=== PATIENT | female | born 1990 | race Caucasian/White ===

== ENCOUNTER 2016-06-27 02:03 | Emergency (ER) | payer OTHER ==
[~2016-06-27] VITALS: Ht 175.3 cm; Wt 65.0 kg
[2016-06-27 02:23] VITALS: Ht 175.3 cm; Wt 65.0 kg
[2016-06-27] MEDS ORDERED: CPRHC10OT BOTH EARS (03:20)
[2016-06-27] MEDS ORDERED: HYDR-906 PO (03:21)
[2016-06-27] MEDS ORDERED: KETOROLAC 30 MG INJ IM STA (03:21)
[2016-06-27] MEDS ORDERED: AMO500 PO (03:21)
[2016-06-27] MEDS ORDERED: IBUP-1542 PO (03:21)
--- NOTE | 2016-06-27 03:26 | ERD ---
ER Documentation Chief Complaint Date/Time DATE: 06/27/16 TIME: 03:22 Chief Complaint Bilateral ear pain. ruptured ear drum seen in [facility] Patient is a 26-year-old female who presents with bilateral ear pain 3 days. Patient states she was seen at [facility] yesterday diagnosed with acute otitis media and serous otitis media of bilateral ears. Patient was given an "unknown antibiotic shot, something for inflammation" and one Vicodin pill. Patient was advised to continue Azithromycin x 3 days. Patient has taken 1 dose thus far. She states that she woke up one hour ago with severe pain. Patient states her current pain level is a 10 out of 10. Patient reports yellow discharge from bilateral ears. Patient denies any fever, nausea and vomiting. She does report some chills. Patient denies any cough, sore throat, abdominal pain. ROS All systems reviewed and are negative except as per history of present illness. Medications Home Meds Active Scripts Amoxicillin* (Amoxicillin*) 500 Mg Cap, 500 MG PO BID for 7 Days, CAP Prov:PAMELA LANDIS PA-C 06/27/16 Ibuprofen* (Motrin*) 600 Mg Tab, 600 MG PO Q6, #30 TAB Prov:PAMELA LANDIS PA-C 06/27/16 Hydrocodone/Acetaminophen ([place] 5-325 Tablet) 1 Each Tablet, 1 TAB PO Q6H Y for PAIN, #10 TAB Prov:PAMELA LANDIS PA-C 06/27/16 Ciprofloxacin/Hydrocortisone* (Cipro* HC Otic) 10 Ml Drops, 3 DROP BOTH EARS TID , #1 BOTTLE Prov:PAMELA LANDIS PA-C 06/27/16 Allergies Allergies: Coded Allergies: No Known Allergy (Unverified , 06/27/16) PMhx/Soc Medical and Surgical Hx: pt denies Medical Hx, pt denies Surgical Hx Hx Alcohol Use: No Hx Substance Use: No Hx Tobacco Use: No Smoking Status: Never smoker FmHx Family History: No diabetes Physical Exam Vitals Vital Signs Date Time Temp Pulse Resp B/P Pulse Ox O2 Delivery O2 Flow Rate FiO2 06/27/16 04:49 97 16 117/65 97 Room Air 06/27/16 02:23 98.9 103 18 118/73 97 Physical Exam GENERAL: Well-developed, well-nourished female. Appears in no acute distress. HEAD: Normocephalic, atraumatic. No deformities or ecchymosis. EYE: Pupils equal, round, and reactive to light. EOMs intact. No conjunctival erythema. No eye discharge. ENT: External ear without any masses or tenderness. Bilateral auditory canals swollen with yellow discharge noted. Difficulty visualizing bilateral tympanic membranes secondary to swelling of auditory canal. Unable to determine if tympanic membrane perforated. Nasal mucosa pink with no discharge. Oropharynx is pink without any tonsillar erythema or exudates. No uvula deviation. No kissing tonsils. Nontender to palpation of bilateral mastoid processes. NECK: Supple. No meningismus. Normal ROM of the neck. LUNG: Clear to auscultation bilaterally. No rhonchi, wheezing, rales or coarse breath sounds. HEART: Regular rate and rhythm. No murmurs, rubs or gallops. BACK: No midline tenderness. EXTREMITES: Equal pulses bilaterally. No peripheral clubbing, cyanosis or edema. No unilateral leg swelling. NEUROLOGIC: Alert and oriented to person, place and time. Moving all four extremities. 5/5 strength in all extremities. Normal speech. Steady gait. SKIN: Normal color. Warm and dry. No rashes or lesions. Results 24 hrs Current Medications Medications (Trade) Dose Ordered Sig/Cate Route PRN Reason Start Time Stop Time Status Last Admin Dose Admin Ketorolac Tromethamine (Toradol) 30 mg ONCE STAT IM 06/27/16 03:21 06/27/16 03:23 DC 06/27/16 03:42 Acetaminophen/ Hydrocodone Bitart ([place] (5/325)) 1 tab ONCE ONCE PO 06/27/16 04:30 06/27/16 04:31 DC 06/27/16 04:35 Procedures/MDM MEDICAL DECISION MAKING: This is a 26-year-old female who presents with bilateral ear pain. Patient was diagnosed with acute otitis media and serous otitis media yesterday when she was seen at an outside hospital.. Vital signs were reviewed. Patient was afebrile. Patient was not hypoxic. ENT exam revealed swelling of bilateral auditory canal swelling with yellow discharge. Patient was given Toradol IM and [place] here in the ED due to having 10/10 pain. Patient reported improvement in pain prior to discharge.Given these findings, the patient;s presentation is most consistent with bilateral otitis media and otitis externa. I have a much lower clinical suspicion for strep pharyngitis, sinusitis, mastoiditis, otic barotrauma, TMJ dysfunction, pneumonia. Unable to rule out tympanic membrane rupture given difficulty with visualizing tympanic membranes secondary to auditory canal swelling. PRESCRIPTIONS: Cipro ear drop. Amoxicillin. Patient advised to stop Azithromycin and start Amoxicillin. Ibuprofen, [place] DISCHARGE: At this time, patient is stable for discharge and outpatient management. I have instructed the patient to follow-up with his/her primary care physician in 1-2 days. I have discussed with the patient the possibility of needing to see a specialist for further workup and diagnostic studies if the pain persists. I have instructed the patient to promptly return to the ER at any time for any new or worsening symptoms including increased pain, fever, swelling, discharge or hearing loss. The patient and/or family expressed understanding of and agreement with this plan. All questions were answered. Home care instructions were provided. Departure Diagnosis: Primary Impression: Otitis externa Otitis externa type: unspecified type Laterality: bilateral Chronicity: unspecified Qualified Code: H60.93 - Otitis externa of both ears, unspecified chronicity, unspecified type Additional Impression: Acute otitis media Otitis media type: unspecified Laterality: unspecified laterality Qualified Code: H66.90 - Acute otitis media, unspecified laterality, unspecified otitis media type Condition: Stable Patient Instructions: Otitis Media, Abx Tx (Adult) Referrals: [facility] YOU HAVE RECEIVED A MEDICAL SCREENING EXAM AND THE RESULTS INDICATE THAT YOU DO NOT HAVE A CONDITION THAT REQUIRES URGENT TREATMENT IN THE EMERGENCY DEPARTMENT. FURTHER EVALUATION AND TREATMENT OF YOUR CONDITION CAN WAIT UNTIL YOU ARE SEEN IN YOUR DOCTORS OFFICE WITHIN THE NEXT 1-2 DAYS. IT IS YOUR RESPONSIBILITY TO MAKE AN APPOINTMENT FOR [facility]- CARE. IF YOU HAVE A PRIMARY DOCTOR --you should call your primary doctor and schedule an appointment IF YOU DO NOT HAVE A PRIMARY DOCTOR YOU CAN CALL OUR PHYSICIAN REFERRAL HOTLINE AT IF YOU CAN NOT AFFORD TO SEE A PHYSICIAN YOU CAN CHOSE FROM THE FOLLOWING [facility] [address] [place]. [facility] [address] [facility]. [facility] [address] [facility] [address] [facility] [address] [facility] [facility] [address] [facility]. [facility] YOU HAVE RECEIVED A MEDICAL SCREENING EXAM AND THE RESULTS INDICATE THAT YOU DO NOT HAVE A CONDITION THAT REQUIRES URGENT TREATMENT IN THE EMERGENCY DEPARTMENT. FURTHER EVALUATION AND TREATMENT OF YOUR CONDITION CAN WAIT UNTIL YOU ARE SEEN IN YOUR DOCTORS OFFICE WITHIN THE NEXT 1-2 DAYS. IT IS YOUR RESPONSIBILITY TO MAKE AN APPOINTMENT FOR FOLOW-UP CARE. IF YOU HAVE A PRIMARY DOCTOR --you should call your primary doctor and schedule and appointment IF YOU DO NOT HAVE A PRIMARY DOCTOR YOU CAN CALL OUR PHYSICIAN REFERRAL HOTLINE AT . IF YOU CAN NOT AFFORD TO SEE A PHYSICIAN YOU CAN CHOSE FROM THE FOLLOWING [facility]IONS: [facility] [address] [place] [address] [facility] [address] [place] [address] [facility] + [facility] [address] [place] [address] Additional Instructions: Call your primary care doctor TOMORROW for an appointment during the next 1-2 days.See the doctor sooner or return here if your condition worsens before your appointment time. PAMELA LANDIS PA-C Jun 27, 2016 03:26
[2016-06-27] MEDS ORDERED: HYDROCODONE/APAP (5/325) TAB PO ONE (04:30)
[2016-06-27 04:49] VITALS: BP 117/65; PULSE 97; RESP 16
== END 2016-06-27 04:53 | disposition home or self-care (01) ==
LOC: FTE 02:03
DX: H60.93 Unspecified otitis externa, bilateral (principal); H66.90 Otitis media, unspecified, unspecified ear
CPT/HCPCS: 96372; 99284; J1885

== ENCOUNTER 2016-11-17 13:13 | Emergency (ER) | payer OTHER ==
[~2016-11-17] VITALS: Ht 175.3 cm; Wt 61.5 kg
[~2016-11-17 13:13] MED LIST: AMO500 PO; CPRHC10OT BOTH EARS; HYDR-906 PO; IBUP-1542 PO
[2016-11-17 13:14] VITALS: Ht 175.3 cm; Wt 61.5 kg
--- NOTE | 2016-11-17 13:42 | ERA ---
ER Documentation Chief Complaint Date/Time DATE: 11/17/16 TIME: 13:42 Chief Complaint Pelvic pain HPI The patient is a 26-year-old female, presenting to the ER because of chronic pelvic pain, was for the last couple days. She denies fever, chills, neck pain , chest pain, dyspnea, abdominal pain, vomiting, dysuria, diarrhea, vaginal discharge. He complains of frequent urination and weight loss. She does not smoke nor drink Past medical history: Acnes Past surgical history: None ROS All systems reviewed and are negative except as per history of present illness. Medications Home Meds Active Scripts Ibuprofen* (Motrin*) 600 Mg Tab, 600 MG PO Q6H Y for PAIN AND OR ELEVATED TEMP, #30 TAB Prov:ADAM GIL MD 11/17/16 Amoxicillin* (Amoxicillin*) 500 Mg Cap, 500 MG PO BID for 7 Days, CAP Prov:PAMELA LANDIS PA-C 06/27/16 Ibuprofen* (Motrin*) 600 Mg Tab, 600 MG PO Q6, #30 TAB Prov:PAMELA LANDIS PA-C 06/27/16 Hydrocodone/Acetaminophen ([place] 5-325 Tablet) 1 Each Tablet, 1 TAB PO Q6H Y for PAIN, #10 TAB Prov:PAMELA LANDIS PA-C 06/27/16 Ciprofloxacin/Hydrocortisone* (Cipro* HC Otic) 10 Ml Drops, 3 DROP BOTH EARS TID , #1 BOTTLE Prov:PAMELA LANDIS PA-C 06/27/16 Allergies Allergies: Coded Allergies: No Known Allergy (Unverified , 06/27/16) PMhx/Soc Hx Alcohol Use: No Hx Substance Use: No Hx Tobacco Use: No Physical Exam Vitals Vital Signs Date Time Temp Pulse Resp B/P Pulse Ox O2 Delivery O2 Flow Rate FiO2 11/17/16 16:10 98.0 84 18 122/80 100 11/17/16 13:14 98.5 81 18 126/83 100 Physical Exam Const: No acute distress. Head: Atraumatic. Eyes: Normal Conjunctiva. ENT: Normal External Ears, Nose and Mouth. Neck: Full range of motion. No meningismus. Resp: Clear to auscultation bilaterally. Cardio: Regular rate and rhythm. Abd: Soft, non distended, normal bowel sounds, non tender. Minimal suprapubic tenderness, no rigidity, rebound, CVA tenderness Skin: No petechiae or rashes. Back: No midline or flank tenderness. Ext: No cyanosis, or edema. Neur: Awake and alert. No focal deficit Psych: Normal Mood and Affect. Result Diagram: 11/17/16 1410 11/17/16 1410 Results 24 hrs Laboratory Tests Test 11/17/16 14:07 11/17/16 14:10 Bedside Urine pH (LAB) 6.5 Bedside Urine Protein (LAB) Negative Bedside Urine Glucose (UA) Negative Bedside Urine Ketones (LAB) Trace Bedside Urine Blood Negative Bedside Urine Nitrite (LAB) Negative Bedside Urine Leukocyte Esterase (L Negative White Blood Count 7.710^3/ul Red Blood Count 4.8110^6/ul Hemoglobin 14.4g/dl Hematocrit 42.9% Mean Corpuscular Volume 89.2fl Mean Corpuscular Hemoglobin 29.9pg Mean Corpuscular Hemoglobin Concent 33.6g/dl Red Cell Distribution Width 11.1% Platelet Count 43271^3/UL Mean Platelet Volume 10.9fl Neutrophils % 54.8% Lymphocytes % 37.6% Monocytes % 6.2% Eosinophils % 0.6% Basophils % 0.5% Nucleated Red Blood Cells % 0.0/100WBC Neutrophils # 4.210^3/ul Lymphocytes # 2.910^3/ul Monocytes # 0.510^3/ul Eosinophils # 0.110^3/ul Basophils # 0.010^3/ul Nucleated Red Blood Cells # 0.010^3/ul Sodium Level 138mmol/L Potassium Level 4.1mmol/L Chloride Level 101mmol/L Carbon Dioxide Level 27mmol/L Anion Gap 14 Blood Urea Nitrogen 7mg/dl Creatinine 0.69mg/dl Glucose Level 89mg/dl Calcium Level 9.9mg/dl Procedures/[place] [address] Radiology Main Line: [phone] DIAGNOSTIC IMAGING REPORT Patient: SKYE BETANCOURT : 1990 Age: 26 Sex: F MR #: [id number] DOS: 11/17/16 1357 Ordering MD: ADAM GIL MD Location: FTE Room/Bed: PROCEDURE: US Pelvis. CLINICAL INDICATION: pelvic pain TECHNIQUE: Multiple sonographic images of the pelvis were obtained utilizing a transabdominal and endovaginal technique. The images were reviewed on a PACS workstation. COMPARISON: None. FINDINGS: The uterus is normal in size with a normal appearance of the myometrium. The uterus measures 5.9 x 2.9 x 4.4 cm. The endometrial stripe is homogeneous in appearance and has the thickness of 3.5 mm. The ovaries are normal in size and echogenicity. Normal Doppler flow is identified in both ovaries. The right ovary measures 3.0 x 1.4 x 2.6 cm. The left ovary measures 2.6 x 1.8 x 2.1 cm. There are normal follicles in the ovaries. No free fluid is present within the pelvis. RPTAT: AA IMPRESSION: Unremarkable pelvic ultrasound. .Jose Song MD, Date Time Electronically viewed and signed by .Jose Song MD, MD on 11/17/2016 14: 46 .S/ CC: ADAM GIL MD MEDICAL MAKING DECISION: The patient is a 36-year-old female, presenting with chronic pelvic pain of unclear etiology. She is stable for outpatient follow-up The differential diagnoses considered include but are not limited to PID, ovarian cyst, endometriosis, fibroids, appendicitis. Departure Diagnosis: Primary Impression: Pelvic pain Condition: Good Comments She was discharged with Motrin I discussed the findings with the patient. I advised the patient to follow-up with order picker/assembler in about 1-2 days, sooner if needed and return if any concern. ADAM GIL MD Nov 17, 2016 13:42
[2016-11-17 14:02] LABS: URINE BLOOD (Dip) POC Negative (NEGATIVE)
[2016-11-17 14:16] LABS: ADD SCAN DIFF NO
[2016-11-17 14:29] LABS: BASOPHILS % 0.5 % (0.0-2.0); EOSINOPHILS # 0.1 10^3/ul (0.0-0.5); EOSINOPHILS % 0.6 % (0.0-7.0); HEMATOCRIT 42.9 % (37.0-47.0); HEMOGLOBIN 14.4 g/dl (12.0-16.0); LYMPHOCYTES # 2.9 10^3/ul (0.8-2.9); LYMPHOCYTES % 37.6 % (15.0-51.0); MEAN CORPUSCULAR HEMOGLOBIN 29.9 pg (29.0-33.0); MEAN CORPUSCULAR HGB CONC 33.6 g/dl (32.0-37.0); MEAN CORPUSCULAR VOLUME 89.2 fl (82.0-101.0); MEAN PLATELET VOLUME 10.9 fl (7.4-10.4); MONOCYTE # 0.5 10^3/ul (0.3-0.9); MONOCYTES % 6.2 % (0.0-11.0); NEUTROPHIL # 4.2 10^3/ul (1.6-7.5); NEUTROPHILS % 54.8 % (39.0-77.0); PLATELET COUNT 199 10^3/UL (140-415); RED BLOOD COUNT 4.81 10^6/ul (4.20-5.40); RED CELL DISTRIBUTION WIDTH 11.1 % (11.5-14.5); WHITE BLOOD COUNT 7.7 10^3/ul (4.8-10.8)
[2016-11-17 14:38] LABS: CALCIUM 9.9 mg/dl (8.4-10.2); CREATININE 0.69 mg/dl (0.44-1.00); POTASSIUM 4.1 mmol/L (3.5-5.1)
--- NOTE | 2016-11-17 14:47 | RADRPT ---
PROCEDURE: US Pelvis. CLINICAL INDICATION: pelvic pain TECHNIQUE: Multiple sonographic images of the pelvis were obtained utilizing a transabdominal and endovaginal technique. The images were reviewed on a PACS workstation. COMPARISON: None. FINDINGS: The uterus is normal in size with a normal appearance of the myometrium. The uterus measures 5.9 x 2.9 x 4.4 cm. The endometrial stripe is homogeneous in appearance and has the thickness of 3.5 mm. The ovaries are normal in size and echogenicity. Normal Doppler flow is identified in both ovaries. The right ovary measures 3.0 x 1.4 x 2.6 cm. The left ovary measures 2.6 x 1.8 x 2.1 cm. There are normal follicles in the ovaries. No free fluid is present within the pelvis. RPTAT: AA IMPRESSION: Unremarkable pelvic ultrasound. .Jose Song MD, Date Time Electronically viewed and signed by .Jose Song MD, on 11/17/2016 14:46 .S/
[2016-11-17] MEDS ORDERED: IBUP-1542 PO (15:43)
[2016-11-17 16:10] VITALS: BP 122/80; PULSE 84; RESP 18; TEMP 98
== END 2016-11-17 16:11 | disposition home or self-care (01) ==
LOC: FTE 13:13
DX: R10.2 Pelvic and perineal pain (principal)
CPT/HCPCS: 36415; 76830; 76856; 80048; 81003; 85025

== ENCOUNTER 2016-12-28 15:29 | Emergency (ER) | payer BC, OTHER ==
[~2016-12-28] VITALS: Ht 157.5 cm; Wt 67.0 kg
[~2016-12-28 15:29] MED LIST changes: -AMO500 PO; +AMOX500C2 PO
[2016-12-28 15:34] VITALS: Ht 157.5 cm; Wt 67.0 kg
[2016-12-28 18:05] LABS: ADD UMIC NO; UR ASCORBIC ACID 20 mg/dL (NEGATIVE); UR BILIRUBIN (Dip) NEGATIVE (NEGATIVE); UR BLOOD (Dip) NEGATIVE (NEGATIVE); UR CLARITY CLEAR (CLEAR); UR COLOR STRAW (YELLOW); UR GLUCOSE (Dip) NEGATIVE (NEGATIVE); UR KETONES (Dip) NEGATIVE (NEGATIVE); UR LEUKOCYTE ESTERASE (Dip) NEGATIVE Leu/ul (NEGATIVE); UR NITRITE (Dip) NEGATIVE (NEGATIVE); UR SPECIFIC GRAVITY (Dip) 1.013 (1.003-1.030); UR TOTAL PROTEIN (Dip) NEGATIVE (NEGATIVE); UR UROBILINOGEN (Dip) NEGATIVE (NEGATIVE)
--- NOTE | 2016-12-28 18:07 | RADRPT ---
PROCEDURE: ULTRASOUND EVALUATION OF THE FEMALE PELVIS: CLINICAL INDICATION: 26 years of age, female, pelvic pain . COMPARISON: Pelvic ultrasound November 17, 2016 TECHNIQUE: Real-time sonographic images of the pelvis were obtained transabdominally and transvagina lly utilizing ramirez scale, color, and Doppler imaging. FINDINGS: LMP: November 09, 2016 Uterus: Appearance: Normal. Position: Anteverted Size: 6.5 x 3.2 x 3.6 cm. (Volume 39 mL) Endometrial stripe: 0.3 cm Right ovary and adnexa: Size: 3.7 x 1.9 x 2.5 cm. (Volume 9.1 mL) Appearance: Normal morphology. No masses. Arterial flow present. Left ovary and adnexa: Size: 3.5 x 1.8 x 2.3 cm. (Volume 7.2 mL) Appearance: Normal morphology. No masses. Arterial flow present. Free fluid: None IMPRESSION: Normal ultrasound evaluation of the female pelvis. Cause for pelvic pain is not evident. RPTAT: HCTS Physician Debra Date Time Electronically viewed and signed by Physician Debra on 12/28/2016 18:06 /
[2016-12-28] MEDS ORDERED: METR500T PO (19:35)
[2016-12-28] MEDS ORDERED: CLOT30CR24 TOP (19:36)
[2016-12-28 20:31] VITALS: BP 117/65; PULSE 73; RESP 16
--- NOTE | 2017-01-04 13:00 | ERD ---
ER Documentation Chief Complaint Date/Time DATE: 01/04/17 TIME: 12:59 Chief Complaint pelvic pain HPI 26 year old female patient with no significant past medical history presents to the ED complaining of pelvic pain intermittently for 2 years. Patient also reports that she has a rash surrounding the genitalia. Reports that she is not . States that the rash is itchy. Denies any vaginal bleeding, dysuria, urgency, frequency, abdominal pain, nausea, vomiting, diarrhea, constipation, chest pain, shortness of breath. States that she is unsure of the exact date of her last menses. States that she has not been sexually active recently. Reports that she was tested for STDs and HIV and it was negative. ROS All systems reviewed and are negative except as per history of present illness. Medications Home Meds Active Scripts Clotrimazole* (Clotrimazole* AF) 1% - 30 Gm Cream.gm., 1 APPLIC TOP BID for 28 Days, TUB or until 1 week after symptoms resolve Prov:DEJAN LIMON PA-C 12/28/16 Metronidazole* (Flagyl*) 500 Mg Tablet, 500 MG PO BID for 7 Days, TAB Prov:DEJAN LIMON PA-C 12/28/16 Ibuprofen* (Motrin*) 600 Mg Tab, 600 MG PO Q6H Y for PAIN AND OR ELEVATED TEMP, #30 TAB Prov:ADAM GIL MD 11/17/16 Amoxicillin* (Amoxicillin*) 500 Mg Cap, 500 MG PO BID for 7 Days, CAP Prov:PAMELA LANDIS PA-C 06/27/16 Ibuprofen* (Motrin*) 600 Mg Tab, 600 MG PO Q6, #30 TAB Prov:PAMELA LANDIS PA-C 06/27/16 Hydrocodone/Acetaminophen ([place] 5-325 Tablet) 1 Each Tablet, 1 TAB PO Q6H Y for PAIN, #10 TAB Prov:PAMELA LANDIS PA-C 06/27/16 Ciprofloxacin/Hydrocortisone* (Cipro* HC Otic) 10 Ml Drops, 3 DROP BOTH EARS TID , #1 BOTTLE Prov:PAMELA LANDIS PA-C 06/27/16 Allergies Allergies: Coded Allergies: No Known Allergy (Unverified , 06/27/16) PMhx/Soc Medical and Surgical Hx: pt denies Medical Hx, pt denies Surgical Hx Hx Alcohol Use: No Hx Substance Use: No Hx Tobacco Use: No Physical Exam Vitals Temp 98.2 Pulse 90 Resp 18 SBP 123 DBP 83 O2 Sat 99 Physical Exam Const: [id number], well-nourished. In no acute distress. Head: Atraumatic, normocephalic Eyes: Normal Conjunctiva without injection. No purulent discharge. ENT: Normal external ear, nose. Moist oropharynx without tonsillar exudates. Non -erythematous pharynx. Uvula midline. No drooling. No trismus. Neck: No cervical midline tenderness. Full range of motion. No meningismus. No cervical lymphadenopathy. No JVD. Resp: Clear to auscultation bilaterally. No wheezing, rhonchi, rales, or crackles. No accessory muscle use. No retractions. Cardio: Regular rate and rhythm. No murmurs, rubs or gallops. Abd: Soft, nontender, non distended. Normal bowel sounds. No palpable masses. No rebound tenderness. No guarding. Negative McBurney's point. Negative psoas sign. Negative obturator sign. : See exam in MDM. Skin: No petechiae, purpura. Erythematous base rash with central clearing surrounding the genitalia region. Back: No midline tenderness. No CVA tenderness. Ext: No cyanosis, or edema. Neur: Awake and alert. Normal gait. Normal coordination. Psych: Normal Mood and Affect Results 24 hrs Laboratory Tests Test 12/28/16 17:17 Urine Color STRAW Urine Clarity CLEAR Urine pH 7.0 Urine Specific Henry 1.013 Urine Ketones NEGATIVEmg/dL Urine Nitrite NEGATIVEmg/dL Urine Bilirubin NEGATIVEmg/dL Urine Urobilinogen NEGATIVEmg/dL Urine Leukocyte Esterase NEGATIVELeu/ul Urine Hemoglobin NEGATIVEmg/dL Urine Glucose NEGATIVEmg/dL Urine Total Protein NEGATIVEmg/dl Procedures/[facility] This is a 26-year-old female patient who presents to the ED complaining of chronic pelvic pain that has been occurring intermittently for the past 2 years as well as a rash that she is noted in the external part of her genitalia. Patient is afebrile nontoxic appearing. Patient has normal vital signs. Pelvic Exam: Clinical Informatics Educator present Abdomen: [Nontender] External Genitalia: [Normal Skin] Speculum: [Normal vaginal mucosa, brownish cervical discharge] Bimanual: [No adnexal masses or tenderness, No CMT] PROCEDURE: ULTRASOUND EVALUATION OF THE FEMALE PELVIS: CLINICAL INDICATION: 26 years of age, female, pelvic pain . COMPARISON: Pelvic ultrasound November 17, 2016 TECHNIQUE: Real-time sonographic images of the pelvis were obtained transabdominally and transvaginally utilizing ramirez scale, color, and Doppler imaging. FINDINGS: LMP: November 09, 2016 Uterus: Appearance: Normal. Position: Anteverted Size: 6.5 x 3.2 x 3.6 cm. (Volume 39 mL) Endometrial stripe: 0.3 cm Right ovary and adnexa: Size: 3.7 x 1.9 x 2.5 cm. (Volume 9.1 mL) Appearance: Normal morphology. No masses. Arterial flow present. Left ovary and adnexa: Size: 3.5 x 1.8 x 2.3 cm. (Volume 7.2 mL) Appearance: Normal morphology. No masses. Arterial flow present. Free fluid: None IMPRESSION: Normal ultrasound evaluation of the female pelvis. Cause for pelvic pain is not evident. Urine: No elevation in nitrites, leukocyte esterase, hematuria. No evidence of UTI. Wet mount was positive for clue cells. Patient will be treated for bacterial vaginosis. Low suspicion for symptomatic anemia, ectopic , sepsis, PID, appendicitis, ovarian torsion, tubo- ovarian abscess, surgical abdomen, or other emergent conditions. Rash surrounding the genitalia is consistent with tinea infection. Low suspicion for scabies, SJS/TEN, erythema multiforme, sepsis, cellulitis, necrotizing fascitis , gangrene, meningococcemia or other emergent conditions. Discharge medications: Clotrimazole, Metronidazole Patient to follow up with INSTRUMENT ASSEMBLY SUPERVISOR in 2 days for further evaluation and treatment. Patient is to return sooner to the ED for any worsening symptoms. Patient's questions were answered. Patient understood and agreed with discharge plan. Departure Diagnosis: Primary Impression: Pelvic pain Condition: Stable Patient Instructions: Vaginal Infection: Bacterial Vaginosis, Why Have a Pap Test?, Pelvic Pain, Unknown Cause, Tinea Cruris, General Referrals: ANA LEUNG MD (PCP) [facility] YOU HAVE RECEIVED A MEDICAL SCREENING EXAM AND THE RESULTS INDICATE THAT YOU DO NOT HAVE A CONDITION THAT REQUIRES URGENT TREATMENT IN THE EMERGENCY DEPARTMENT. FURTHER EVALUATION AND TREATMENT OF YOUR CONDITION CAN WAIT UNTIL YOU ARE SEEN IN YOUR DOCTORS OFFICE WITHIN THE NEXT 1-2 DAYS. IT IS YOUR RESPONSIBILITY TO MAKE AN APPOINTMENT FOR FOLOW-UP CARE. IF YOU HAVE A PRIMARY DOCTOR --you should call your primary doctor and schedule an appointment IF YOU DO NOT HAVE A PRIMARY DOCTOR YOU CAN CALL OUR PHYSICIAN REFERRAL HOTLINE AT IF YOU CAN NOT AFFORD TO SEE A PHYSICIAN YOU CAN CHOSE FROM THE FOLLOWING [facility] [address] [facility] [address] [facility]. [facility] [address] [facility] [address] [facility]. [facility] [address] [facility]. [facility] [address] [facility]. [facility] YOU HAVE RECEIVED A MEDICAL SCREENING EXAM AND THE RESULTS INDICATE THAT YOU DO NOT HAVE A CONDITION THAT REQUIRES URGENT TREATMENT IN THE EMERGENCY DEPARTMENT. FURTHER EVALUATION AND TREATMENT OF YOUR CONDITION CAN WAIT UNTIL YOU ARE SEEN IN YOUR DOCTORS OFFICE WITHIN THE NEXT 1-2 DAYS. IT IS YOUR RESPONSIBILITY TO MAKE AN APPOINTMENT FOR FOLOW-UP CARE. IF YOU HAVE A PRIMARY DOCTOR --you should call your primary doctor and schedule and appointment IF YOU DO NOT HAVE A PRIMARY DOCTOR YOU CAN CALL OUR PHYSICIAN REFERRAL HOTLINE AT . IF YOU CAN NOT AFFORD TO SEE A PHYSICIAN YOU CAN CHOSE FROM THE FOLLOWING [facility]: [facility] [address] [place] [address] [facility] [address] [place] [address] [facility] [address] [place] [address] [facility] URGENT CARE/SPECIALTIES Additional Instructions: Call your primary care doctor TOMORROW for an appointment during the next 1-2 days for a referral to see a INSTRUMENT ASSEMBLY SUPERVISOR for a pap smear. No drinking alcohol while taking Metronidazole.See the doctor sooner or return here if your condition worsens before your appointment time. DEJAN LIMON PA-C Jan 04, 2017 13:00
== END 2016-12-28 20:32 | disposition home or self-care (01) ==
LOC: FTE 15:29
DX: R10.2 Pelvic and perineal pain (principal)
CPT/HCPCS: 76830; 76856; 81003; 87210; Z7502